=== PATIENT | male | born 1965 | race Caucasian/White ===

== ENCOUNTER 2022-02-09 13:31 | Emergency (ER) | payer BC ==
[2022-02-09] MEDS ORDERED: IBUPROFEN 800 MG TAB PO STA (14:49)
[2022-02-09] MEDS: Acetaminophen-Codeine 300-30mg TAB PO STA ×2 (14:53→16:57)
--- NOTE | 2022-02-09 14:53 | ED ---
Lower Extremity Injury HPI - General Chief Complaint: Extremity Injury, Lower Stated Complaint: Broken Tibia,Came from [facility] Time Seen by Provider: 02/09/22 14:38 Source: patient, family, RN notes reviewed Mode of arrival: wheelchair Limitations: no limitations - History of Present Illness Initial Comments: This is a 56-year-old male who presents to the emergency department for a tibia fracture. He was seen at [facility] earlier today and diagnosed with a left displaced tibial plateau fracture. He sustained this fracture after tripping when getting onto a boat. He was sent over from [facility] for further evaluation by orthopedics. Patient does bring a disc record of the x-rays with him. He has only taken ibuprofen 800 mg for his pain early this morning. Denies any fevers, chills, sore throat, cough, dyspnea, chest pain, palpitations, abdominal pain, nausea, vomiting, diarrhea, back pain, or headaches. MD Complaint: knee injury Injury: Knee: Left Context: fall - Related Data Home Medications Medication Instructions Recorded Confirmed Ibuprofen [Motrin Ib] 800 mg PO Q8H PRN 02/09/22 02/09/22 Metoprolol Succinate (ER) [Toprol 100 mg PO DAILY 02/09/22 02/09/22 Xl] Simvastatin [Zocor] 20 mg PO DAILY 02/09/22 02/09/22 amLODIPine [Norvasc] 5 mg PO DAILY 02/09/22 02/09/22 Allergies Allergy/AdvReac Type Severity Reaction Status Date / Time No Known Allergies Allergy Verified 02/09/22 16:19 Review of Systems ROS Statement: Those systems with pertinent positive or pertinent negative responses have been documented in the HPI. ROS Other: All systems not noted in ROS Statement are negative. Past Medical History Past Medical History: Hyperlipidemia, Hypertension History of Any Multi-Drug Resistant Organisms: None Reported Past Surgical History: No Surgical Hx Reported Past Psychological History: No Psychological Hx Reported Smoking Status: Former smoker Past Alcohol Use History: Daily Past Drug Use History: Marijuana General Exam Limitations: no limitations General appearance: alert, in no apparent distress Head exam: Present: atraumatic, normocephalic, normal inspection Respiratory exam: Present: normal lung sounds bilaterally. Absent: respiratory distress, wheezes, rales, rhonchi, stridor Cardiovascular Exam: Present: regular rate, normal rhythm, normal heart sounds. Absent: systolic murmur, diastolic murmur, rubs, gallop, clicks Extremities exam: Present: other (Tenderness and swelling over the left tibial plateau) Neurological exam: Present: alert, oriented X3, CN II-XII intact Psychiatric exam: Present: normal affect, normal mood Skin exam: Present: warm, dry, intact, normal color. Absent: rash Course Vital Signs 02/09/22 02/09/22 13:59 16:59 Temperature 98 F 97.2 F L Pulse Rate 72 71 Respiratory 16 18 Rate Blood Pressure 164/79 177/87 O2 Sat by Pulse 100 98 Oximetry Medical Decision Making - Medical Decision Making This is a 56-year-old male who presents to the emergency department for a left tibial plateau fracture. The system to scan in outside x-rays is not up and running at the moment, and repeat x-rays were obtained here. X-ray reveals an acute left tibial plateau intra-articular fracture with mild displacement of the lateral tibial plateau fragments with depression of the tibial articular surface. Fracture lines extending to the metadiaphysis region. Dr. Jessica, orthopedics, states that due to the complexity of this fracture, the patient is to be transferred to [facility] for surgical intervention. He was placed in a knee immobilizer prior to discharge. This case was discussed in detail with the attending ED physician. Presentation, findings, and treatment plan discussed in detail as well. - Radiology Data Radiology results: report reviewed, image reviewed Disposition Clinical Impression: Tibial plateau fracture, left Disposition: OTHER INSTITUTION NOT DEFINED Referrals: Calixto Canas MD [Primary Care Provider] - 1-2 days - Out of Hospital Transfer - Req. Specs Out of Hospital Transfer - Requested Specifics: Other Emergency Center ([facility])
--- NOTE | 2022-02-09 15:14 | XR ---
EXAMINATION TYPE: XR tibia fibula LT, XR knee complete LT DATE OF EXAM: 02/09/2022 3:05 PM INDICATION: Patient age:Male; 56 years old; Reason for study: Diagnosed with tibia fracture at other hospital; COMPARISON: None TECHNIQUE: The left tibia/fibula was examined in AP and lateral projections. Left knee was examined in frontal, lateral and oblique views. FINDINGS: There is an acute fracture through the lateral tibial plateau with extension into the tibia l metadiaphysis region. There is a lipohemarthrosis present with fluid fluid level noted. There is in tra-articular extension. A posterior fragment is displaced posteriorly 8 mm displacement. The lateral tibial plateau is displaced laterally up to 4 mm. There is a small amount of depression of the later al tibial plateau. No additional fractures identified of the distal leg or fibula. IMPRESSION: Acute left tibial plateau intra-articular fracture with mild displacement of the lateral tibial plate au fragments with depression of the tibial articular surface. Fracture lines extending to the metadia physis region.
[2022-02-09] MEDS ORDERED: SODIUM CHLORIDE 0.9% 500 ML 500 ML IV SCH (16:45)
[2022-02-09] MEDS ORDERED: VANCOMYCIN IV PER PHARMACY 1 EACH MISC MISCELLANE PRN (16:45)
[2022-02-09 17:00] VITALS: BP 177/87; PULSE 71; RESP 18; TEMP 97.2
== END 2022-02-09 17:23 | disposition other institution (70) ==
LOC: EC 13:31
DX: S82.142A Displaced bicondylar fracture of left tibia, initial encounter for closed fracture (principal); E78.5 Hyperlipidemia, unspecified; I10 Essential (primary) hypertension; Z87.891 Personal history of nicotine dependence; F12.90 Cannabis use, unspecified, uncomplicated; Z79.899 Other long term (current) drug therapy; W18.40XA Slipping, tripping and stumbling without falling, unspecified, initial encounter
CPT/HCPCS: 99284